=== PATIENT | female | born 1955 | race Caucasian/White ===

== ENCOUNTER 2021-08-25 18:31 | Emergency (ER) | payer SELFPAY ==
[~2021-08-25] VITALS: Ht 165.1 cm; Wt 74.8 kg
--- NOTE | 2021-08-25 18:35 | NUR ---
Pt was triaged and placed in ER waiting room because the ER is saturated and there are no beds available. Pt ambulatory to ER waiting room.
[2021-08-25] MEDS ORDERED: CELEXA (18:41)
--- NOTE | 2021-08-26 00:40 | NUR ---
Pt not in waiting room.
== END 2021-08-26 00:42 | disposition left against medical advice (07) ==
LOC: ER 18:34
DX: Z53.21 Procedure and treatment not carried out due to patient leaving prior to being seen by health care provider (principal)